=== PATIENT | male | born 1980 | race Asian ===

== ENCOUNTER 2022-12-26 11:07 | Inpatient (IN) | payer BC, OTHER ==
[~2022-12-26] VITALS: Ht 175.3 cm; Wt 107.5 kg
--- NOTE | 2022-12-26 11:21 | NUR ---
VINAY FROM [facility] FOR GENERALIZED WEAKNESS AND HYPOTENSION WHILE PLAYING RUGBIE. A/OX4 BREATHING IS UNLABORED, O2SAT 88% ON ROOM AIR AND STARTED ON NC 4L. BP RESULTED 86/51 FLUID RECUSSITATION INITATED. NO PRIOR MEDICAL HISTORY INDORSED. PT STATES HE HAD TAKEN TO BENA[place] DUE TO ALLERGY AND RASH THAT APPEARED AT THE SCENE. SAYS HIS MOUTH AND LIPS FEEL NUMB NO STRIDOR OR SOB STATED BY PT WHEN ASKED.
[2022-12-26] MEDS ORDERED: IV NS 0.9% 1,000 ML BAG IV ONE ×2 (11:30→13:30)
--- NOTE | 2022-12-26 11:33 | NUR ---
PHELB AT BED SIDE.
[2022-12-26 11:44] LABS: BASOPHILS % (AUTO) 0.1 % (0.0-2.0); EOSINOPHILS % (AUTO) 1.6 % (0.0-6.0); HEMATOCRIT 52 % (39-51); LYMPHOCYTES # (AUTO) 2.6 K/uL (0.8-4.8); LYMPHOCYTES % (AUTO) 28.4 % (20.0-44.0); MEAN CORPUSCULAR HGB CONC 33 g/dl (31.0-36.0); MEAN CORPUSCULAR VOLUME 89 fL (80-96); MONOCYTES # (AUTO) 0.2 K/uL (0.1-1.30); MONOCYTES % (AUTO) 2.5 % (2.0-12.0); NEUTROPHILS # (AUTO) 6.1 K/uL (1.8-8.9); NEUTROPHILS % (AUTO) 67.4 % (43.0-81.0); PLATELET COUNT (AUTO) 283 K/uL (150-450); RED BLOOD CELL COUNT(AUTO) 5.82 MIL/uL (4.5-6.0); WHITE BLOOD COUNT (AUTO) 9.1 K/uL (4.3-11.0)
--- NOTE | 2022-12-26 11:47 | NUR ---
VITAL SIGNS HAVE STABLIZED
[2022-12-26 11:59] LABS: CALCIUM, SERUM 8.7 mg/dL (8.5-10.1); CARBON DIOXIDE 26 mmol/L (21-32); CHLORIDE 106 mmol/L (98-107); CREATININE 1.7 mg/dL (0.6-1.3); GLUCOSE 176 mg/dL (74-106); POTASSIUM 2.9 mmol/L (3.5-5.1); SODIUM SERUM 144 mmol/L (136-145); UREA NITROGEN, BLOOD 14 mg/dL (7-18)
[2022-12-26 12:24] LABS: ALANINE AMINOTRANSFERASE 79 U/L (12-78); ALBUMIN 3.7 g/dL (3.4-5.0); ALKALINE PHOSPHATASE 48 U/L (46-116); ASPARTATE AMINOTRANSFERASE 51 U/L (15-37); BILIRUBIN,DIRECT 0.1 mg/dL (0.0-0.2); BILIRUBIN,TOTAL 0.5 mg/dL (0.2-1.0); TOTAL PROTEIN, SERUM 6.9 g/dL (6.4-8.2)
[2022-12-26] MEDS ORDERED: predniSONE 50 MG TABLET PO ONE (13:30)
[2022-12-26] MEDS ORDERED: POTASSIUM CHLORIDE 20 MEQ TAB.PRT.SR PO ONE ×2 (13:30→13:42)
[2022-12-26] MEDS ORDERED: predniSONE 20 MG TABLET ONE ×2 (13:43→13:44)
--- NOTE | 2022-12-26 14:51 | NUR ---
lactic acid decreased 4.0-2.7 currently
[2022-12-26 15:40] LABS: CALCIUM, SERUM 8.3 mg/dL (8.5-10.1); CREATININE 1.3 mg/dL (0.6-1.3); POTASSIUM 3.9 mmol/L (3.5-5.1)
--- NOTE | 2022-12-26 15:56 | NUR ---
troponin 104
[2022-12-26] MEDS ORDERED: FENO145T21 PO (16:01)
[2022-12-26] MEDS ORDERED: ATOR40TA PO (16:01)
--- NOTE | 2022-12-26 16:04 | NUR ---
phelb at bed side to collect 3rd lactic acid.
--- NOTE | 2022-12-26 16:04 | NUR ---
covid swab collected and sent to lab.
--- NOTE | 2022-12-26 16:06 | NUR ---
called nursing cook house supervisor for tele bed.
[2022-12-26] MEDS ORDERED: Z GUARD REMEDY 4 OZ OINT TP PRN (16:30)
[2022-12-26] MEDS ORDERED: IV NS 0.9% 1,000 ML IV PRN (16:30)
[2022-12-26] MEDS ORDERED: MAG HYDROX/AL HYDROX/SIMETH 30 ML UDC PO PRN (16:30)
[2022-12-26] MEDS ORDERED: ZOLPIDEM TARTRATE 5 MG TABLET PO PRN (16:30)
[2022-12-26] MEDS ORDERED: ONDANSETRON HCL/PF 4 MG/2 ML VIAL IVP PRN (16:30)
[2022-12-26] MEDS ORDERED: ACETAMINOPHEN 325 MG TABLET PO PRN (16:30)
[2022-12-26] MEDS ORDERED: MAGNESIUM HYDROXIDE 30 ML UDC PO PRN (16:30)
--- NOTE | 2022-12-26 17:00 | NUR ---
BED ASSIGNMENT 325-2
--- NOTE | 2022-12-26 17:59 | NUR ---
PT TRANSPORTED TO WITH ACLS PROTOCAL. RN AND EMT PRESENT DURING TRANSPORT. INPATIENT NURSE AT BEDSIDE TO RECEIVE PT. PT REMAINED STABLE THROUGHT TRANSFER.
[2022-12-26] MEDS: ATORVASTATIN 40 MG TABLET PO SCH (19:15)
--- NOTE | 2022-12-26 19:20 | NUR ---
FOOD SERVICE OPENING NOTES RECEIVED PATIENT IN BED AWAKE, ALERT AND ORIENTED. A/O X 4. AT BEDSIDE. NO S/S OF PAIN NOTED AT THIS TIME. ON ROOM AIR, BREATHING EVEN AND UNLABORED, NO DISTRESS OR SOB NOTED. IV ACCESS RAC #18G, INTACT, PATENT AND FLUSHING WELL. PATIENT WITH EXTERNAL FUNERAL PRE ARRANGEMENT SPECIALIST WITH CURRENT READING OF SR. SAFETY MEASURES IN PLACE WITH BED IN LOWEST LOCKED POSITION. SIDE RAILS UP X 2. CALL LIGHT WITHIN EASY REACH. WILL CONTINUE WITH THE PLAN OF CARE.
--- NOTE | 2022-12-26 19:30 | NUR ---
BOWLING TEACHER CLOSING NOTE RECEIVED PATIENT FROM ER VIA GURNEY WITH NO SING OF DISTRESS. REPORT RECEIVED FROM ER NURSE. PATIENT WAS ORIENTED TO ROOM SET UP AND EDUCATED ON THE USE OF CALL LIGHT. V/S TAKEN AND STABLE. SKIN ASSESSMENT DONE, SKIN INTACT. BELONGING LIST CHECKED AND SINGED. PATIENT AWAKE IN BED, A/O X 4. AT BED SIDE. ON ROOM AIR, BREATHING EVEN AND UNLABORED. NO SIGNS OF DISTRESS NOTED. S/S OF PAIN NOTED AT THIS TIME. IV ACCESS AT LAC G#18, INTACT PATENT AND FLUSHING WELL. WITH EXTERNAL ELEVATED WORK PLATFORM OPERATOR WITH READING OF A SR HR OF 83. SCHEDULED MEDICATIONS GIVEN. FALL AND SAFETY MEASURES IN PLACED, BED LOCKED IN LOWEST POSITION, SIDE RAILS UP X 2, CALL LIGHT AND TABLE WITHIN REACH; WILL ENDORSE TO PV DESIGN AND INSTALLATION TECHNICIAN NURSE.
[2022-12-26 20:00] VITALS: BP 130/82
[2022-12-27] VITALS: BP 144/81
[2022-12-27 01:36] VITALS: BP 130/82
[2022-12-27 05:00] VITALS: BP 112/75
[2022-12-27 05:54] LABS: BASOPHILS % (AUTO) 0.2 % (0.0-2.0); EOSINOPHILS % (AUTO) 0.4 % (0.0-6.0); HEMATOCRIT 39 % (39-51); HEMOGLOBIN 13.1 g/dL (13.5-17.5); LYMPHOCYTES # (AUTO) 2.3 K/uL (0.8-4.8); LYMPHOCYTES % (AUTO) 27.9 % (20.0-44.0); MEAN CORPUSCULAR HGB CONC 33 g/dl (31.0-36.0); MEAN CORPUSCULAR VOLUME 90 fL (80-96); MONOCYTES # (AUTO) 0.5 K/uL (0.1-1.30); MONOCYTES % (AUTO) 6.5 % (2.0-12.0); NEUTROPHILS # (AUTO) 5.4 K/uL (1.8-8.9); PLATELET COUNT (AUTO) 218 K/uL (150-450); RED BLOOD CELL COUNT(AUTO) 4.38 MIL/uL (4.5-6.0); WHITE BLOOD COUNT (AUTO) 8.3 K/uL (4.3-11.0)
[2022-12-27 06:23] LABS: CALCIUM, SERUM 8.7 mg/dL (8.5-10.1); POTASSIUM 3.5 mmol/L (3.5-5.1)
[2022-12-27 06:24] LABS: MAGNESIUM 2.1 mg/dL (1.8-2.4); PHOSPHORUS 3.6 mg/dL (2.5-4.9)
[2022-12-27 07:00] VITALS: BP 107/63
--- NOTE | 2022-12-27 07:20 | NUR ---
FOURDRINIER MACHINE TENDER OPENING NOTES RECEIVED PATIENT AWAKE IN BED RESTING, APPEARS TO BE COMFORTABLE, A/OX4, DENIES PAIN AT THIS TIME, ON RA, BREATHING EVEN AND UNLABORED, NO DISTRESS OR SOB NOTED, IV ACCESS LAC 18#G, INTACT WITH IVF OF NS AT 75 ML/HR, RUNNING WELL, NO S/S OF INFILTRATION, PATIENT WITH EXTERNAL HAND PICKER WITH CURRENT READING OF SR AND CURRENT HR OF 60, NO CARDIAC DISTRESS NOTED, PATIENT IS CONTINENT, ON BRP, FALL AND SAFETY MEASURES IN PLACE, BED IN LOW AND LOCK POSITION, CALL LIGHT AND TRAY TABLE WITHIN EASY REACH, SIDE RAILS UP X2, WILL CONTINUE TO MONITOR PATIENT ACCORDINGLY.
--- NOTE | 2022-12-27 07:36 | NUR ---
EDUCATION LIAISON CLOSING NOTES PATIENT IN BED SLEEPING. EASILY AWAKEN BY VERBAL STIMULI. A/O X 4. NO S/S OF PAIN NOTED AT THIS TIME. ON ROOM AIR, BREATHING EVEN AND UNLABORED, NO DISTRESS OR SOB NOTED. IV ACCESS RAC #18G, INTACT, PATENT AND FLUSHING WELL. PATIENT WITH EXTERNAL EXPANSION ENVELOPE MAKER HAND WITH CURRENT READING OF SR. ALL NEEDS ATTENDED. SAFETY MEASURES MAINTAINED. WILL ENDORSE TO THE NEXT SHIFT.
[2022-12-27] MEDS ORDERED: FENOFIBRATE NANOCRYS (145 MG) 145 MG TABLET PO SCH (09:00)
[2022-12-27] MEDS ORDERED: ASPIRIN 81 MG TAB.CHEW PO SCH (09:00)
--- NOTE | 2022-12-27 10:41 | NUR ---
RN NOTED PATIENT VERBALIZED THAT HE IS ALLERGIC TO SEAFOOD (RASH AND ITCHING), NOTIFIED DR. FLORENCE AND ORDERED TO DO [facility] OUT OF PT. RECEIVED CALL FROM [employer] THAT HE WILL PUSH THROUGH WITH [facility] AND CONFIRMED IT WITH DR. MADDEN DESPITE PATIENT HAVING ALLERGY TO SEAFOOD.
--- NOTE | 2022-12-27 10:48 | NUR ---
RN NOTE PATIENT WAS JUST PICKUP BY TRANSPORT [employer] VIA W/C FOR [facility].
[2022-12-27] MEDS ORDERED: NITROGLYCERIN 0.4 MG/TAB BOTTLE ONE (11:12)
[2022-12-27] MEDS ORDERED: IOHEXOL-350 100 ML VIAL IV ONE (11:12)
[2022-12-27] MEDS ORDERED: METOPROLOL TARTRATE INJ 5 MG/5 ML AMPUL ONE (11:13)
--- NOTE | 2022-12-27 11:25 | NUR ---
WEARING APPAREL PRESSER RN, PT NOTED TO HAVE ALLERGIES TO SEAFOOD. PT STATES ITS UNKNOWN IF ITS A TRUE REACTION. PT HAS SLIGHT ITCHINESS WHEN TOUCHING GRASS AND RAW FISH. DISCUSSED WITH . PER OK TO PROCEED WITH CTCA AND TO GIVE PT CONTRAST. WILL MONITOR PT CLOSELY.
[2022-12-27] MEDS ORDERED: METOPROLOL TARTRATE INJ 5 MG/5 ML AMPUL IVP PRN (11:30)
[2022-12-27] MEDS ORDERED: NITROGLYCERIN 0.4 MG/TAB BOTTLE SL ONE (11:30)
--- NOTE | 2022-12-27 11:46 | NUR ---
MERCHANDISE DISTRIBUTOR RN, POST CTA PT TOLERATED CONTRAST. NO S/S OF ALLERGIC REACTION. VSS, NO DISTRESS NOTES. SINUS ON TELE. O2 SAT REMAINS >97%. PT DOES NOT HAVE ANY ITCHING OR REDNESS. REPORT ENDORSED TO FLOOR RN. WILL CONTINUE TO MONITOR.
[2022-12-27] MEDS ORDERED: ASPI-1169 PO (15:27)
[2022-12-27 16:00] VITALS: BP 129/88
[2022-12-27] MEDS: ATORVASTATIN 40 MG TABLET PO SCH (17:07)
--- NOTE | 2022-12-27 17:37 | NUR ---
TAP DANCER NOTES PATIENT IS DISCHARGE IN STABLE MEDICAL CONDITION, PATIENT IS A/OX4, ABLE TO MAKE NEEDS KNOWN, V/S TAKEN, STABLE AND RECORDED, IV ACCESS REMOVED ON LAC, DRY PRESSURE DRESSING APPLIED, NO ACTIVE BLEEDING NOTED, EXTERNAL LOG MARKER REMOVED AND RETURNED TO THE TELE DESK, ,ALL BELONGINGS CHECKED AND BELONGINGS LIST SIGNED, HEALTH TEACHING AND DISCHARGE INSTRUCTIONS GIVEN AND VERBALIZED UNDERSTANDING, INSTRUCTED PATIENT TO MAKE AN APPOINTMENT WITH HIS PCP, DISCUSSED PRESCRIPTIONS WITH PATIENT, INSTRUCTED PATIENT IN CASE OF EMERGENCY TO CALL 911 OR GO TO THE NEAREST ER, PATIENT LEFT UNIT AMBULATING WITH NO SIGNS OF DISTRESS, ACCOMPANIED BY JARROD TURCIOS AND PATIENTS TO THE LOBBY AT 1732, CHARGE NURSE AND MD AWARE OF DISCHARGE.
== END 2022-12-27 17:35 | disposition home or self-care (01) | DRG 280 ==
LOC: EDBD 11:10 → ER 11:10 → TELE 17:02
PROVIDERS: ADMIT Nurse Practitioner Acute Care; ATTEND Nurse Practitioner Acute Care
DX: R55 Syncope and collapse (principal); N17.0 Acute kidney failure with tubular necrosis; I21.A1 Myocardial infarction type 2; E87.20 Acidosis, unspecified; M62.82 Rhabdomyolysis; E83.51 Hypocalcemia; E87.6 Hypokalemia; L23.89 Allergic contact dermatitis due to other agents; E78.5 Hyperlipidemia, unspecified; R74.01 Elevation of levels of liver transaminase levels; G47.33 Obstructive sleep apnea (adult) (pediatric); Z68.35 Body mass index [BMI] 35.0-35.9, adult; E66.01 Morbid (severe) obesity due to excess calories; Z20.822 Contact with and (suspected) exposure to COVID-19
CPT/HCPCS: 36415; 71045-TC; 75574; 80048-TC; 80061-TC; 80076-TC; 82550-TC; 82553; 83605-TC; 83735-TC; 84100-TC; 84484-TC; 85025-TC; 87081-TC; 93307-TC; A4223; C9803; G0378; J3490; J7030; Q9967